=== PATIENT | female | born 1990 | race Two or more races ===

== ENCOUNTER 2019-02-26 06:41 | Emergency (ER) | payer OTHER ==
[~2019-02-26] VITALS: Ht 152.4 cm; Wt 48.8 kg
[2019-02-26 06:44] VITALS: BP 119/78
--- NOTE | 2019-02-26 07:10 | NUR ---
THIS IS A 28 YO F W/ C/O ABDOMINAL PAIN X3 DAYS WORSENING THIS MORNING. PATIENT REPORTS FEELING LIKE SHE NEEDS TO HAVE A BOWEL MOVEMENT BUT IS UNABLE TO DO SO. RESPIRATIONS ARE EVEN AND UNLABORED. PATIENT IS IN NO ACUTE DISTRESS. PATIENT AND FAMILY IS HAVING CONCERNS REGARDING INSURANCE.
[2019-02-26] MEDS ORDERED: ONDANSETRON 2MG/ML, 2ML IVPush ONE (07:30)
[2019-02-26] MEDS ORDERED: SODIUM CHLORIDE FLUSH 10ML SYR IVF ONE (07:30)
[2019-02-26] MEDS ORDERED: MORPHINE SULFATE 4 MG/ML, 1ML IVPush PRN (07:30)
--- NOTE | 2019-02-26 07:36 | NUR ---
PATIENT LEAVING AMA. AMBULATED TO REGISTRATION DESK WITH STEADY GAIT ACCOMPANIED BY FAMILY. UNDERSTANDS THE RISKS OF LEAVING AMA. AMA FORM SIGNED.
== END 2019-02-26 07:38 | disposition left against medical advice (07) ==
LOC: ED 07:29
DX: R10.31 Right lower quadrant pain (principal); R11.0 Nausea; R05 Cough
CPT/HCPCS: 99281